=== PATIENT | male | born 1980 | race Caucasian/White ===

== ENCOUNTER 2016-02-12 00:47 | Emergency (ER) | payer MEDICARE, MEDICAID ==
[~2016-02-12] VITALS: Ht 177.8 cm; Wt 85.0 kg
[~2016-02-12 00:47] MED LIST: ALBUTEROL SULFAT3 M3 IH; BENTYL 10MG10 MG/CAP; BRINTELLIX5; CRESTOR20 MG PO; FORTAMET500 M1; IRON325 M2 PO; LAMICTAL 100MG100 MG PO; MELATONIN1 MG; MIRAPEX0.25 MG PO; NEURONTIN300 MG/CAP PO; PERCOCET 325 MG1 TA2 PO; PROAIR RES117 MCG/Ac IH; PROZAC 20MG20 MG PO; RT ADVAIR 228 DISKUS IH; SINEQUAN 1010 MG/CAP PO; SINGULAIR 110 MG/TAB PO; WELCHOL 625MG625 MG
[2016-02-12 01:22] LABS: BASO % 0.5 % (0.0-2.0); EOS # 0.3 (0.0-0.7); EOS % 3.2 % (0-4.0); GRAN # 4.2 (1.4-6.5); GRAN % 53.5 % (42.2-75.2); HEMATOCRIT 41.4 % (42.0-52.0); HEMOGLOBIN 14.9 g/dl (13.5-18.0); LYMPH # 2.8 (1.2-3.4); MEAN CELL VOLUME 92 fl (80.0-100.0); MEAN CORPUSCULAR HEMOGLOBIN 33 pg (27.0-31.0); MEAN CORPUSCULAR HGB CONC 36 g/dl (33.0-37.0); MEAN PLATELET VOLUME 10.1 fl (7.4-10.4); MONO # 0.6 (0.1-0.6); MONO % 7.5 % (1.7-9.3); PLATELET COUNT 224 K/mm3 (130-400); RED BLOOD COUNT 4.49 M/mm3 (4.20-5.60); WHITE BLOOD COUNT 7.9 K/mm3 (4.8-10.8)
[2016-02-12] MEDS ORDERED: LYRICA 50MG CAP50 MG PO (01:33)
[2016-02-12] MEDS ORDERED: ZYPREXA 5MG5 MG PO (01:34)
[2016-02-12] MEDS ORDERED: VIBERZI75 MG PO (01:35)
[2016-02-12 01:43] LABS: ADJUSTED CALCIUM 8.8 mg/dL (8.4-10.2); ALANINE AMINOTRANSFERASE 37 U/L (21-72); ALBUMIN 4.6 gm/dL (3.5-5.0); ALKALINE PHOSPHATASE 113 U/L (50-136); ANION GAP 12 mmol/L (7-16); BILIRUBIN,TOTAL 0.7 mg/dL (0.0-1.0); BLOOD UREA NITROGEN 14 mg/dL (9-20); CALCIUM 9.3 mg/dL (8.4-10.2); CARBON DIOXIDE 23 mmol/L (22-30); CHLORIDE 108 mmol/L (98-107); CREATININE, serum 0.81 mg/dL (0.66-1.25); GLUCOSE 97 mg/dL (74-106); LIPASE 230 U/L (23-300); POTASSIUM 4.4 mmol/L (3.4-5.0); SODIUM 143 mmol/L (137-145); TOTAL PROTEIN 7.9 gm/dL (6.4-8.2)
[2016-02-12 01:49] LABS: C-REACTIVE PROTEIN < 0.5 mg/dL (0.0-0.9)
[2016-02-12 01:55] LABS: PH 5 (5-8); SQUAMOUS EPITHELIAL None Seen /hpf; URINE APPEARANCE Clear; URINE BACTERIA None Seen /hpf; URINE BILIRUBIN Negative (NEGATIVE); URINE BLOOD Negative (NEGATIVE); URINE COLOR Yellow; URINE GLUCOSE Negative (NEGATIVE); URINE KETONE Negative (NEGATIVE); URINE RBC 0-2 /hpf; URINE UROBILINOGEN Negative (NEGATIVE); URINE WBC 0-2 /hpf
[2016-02-12 02:21] VITALS: BP 116/80; PULSE 90; TEMP 97
[2016-02-12] MEDS ORDERED: PROTONIX 40MG T40 MG PO (18:41)
== END 2016-02-12 02:27 | disposition home or self-care (01) ==
LOC: COL.ER 00:47
PROVIDERS: Physician Assistant
DX: R10.13 Epigastric pain (principal)
CPT/HCPCS: J1170; J2405; J7030

== ENCOUNTER 2016-02-12 17:05 | Emergency (ER) | payer MEDICARE, MEDICAID ==
[~2016-02-12] VITALS: Ht 177.8 cm; Wt 85.0 kg
[~2016-02-12 17:05] MED LIST changes: +LYRICA 50MG CAP50 MG PO; +VIBERZI75 MG PO; +ZYPREXA 5MG5 MG PO
[2016-02-12 17:11] VITALS: BP 134/98; TEMP 98.5
[2016-02-12 17:46] LABS: BASO % 0.5 % (0.0-2.0); EOS # 0.3 (0.0-0.7); EOS % 3.3 % (0-4.0); GRAN # 4.7 (1.4-6.5); GRAN % 62.4 % (42.2-75.2); HEMATOCRIT 40.9 % (42.0-52.0); HEMOGLOBIN 14.9 g/dl (13.5-18.0); LYMPH % 26.2 % (20.0-51.0); MEAN CELL VOLUME 92 fl (80.0-100.0); MEAN CORPUSCULAR HEMOGLOBIN 33 pg (27.0-31.0); MEAN CORPUSCULAR HGB CONC 36 g/dl (33.0-37.0); MEAN PLATELET VOLUME 9.9 fl (7.4-10.4); MONO # 0.5 (0.1-0.6); MONO % 7.1 % (1.7-9.3); PLATELET COUNT 214 K/mm3 (130-400); RED BLOOD COUNT 4.47 M/mm3 (4.20-5.60); REDCELL DISTRIBUTION WIDTH-CV 11.9 % (11.5-14.5); WHITE BLOOD COUNT 7.5 K/mm3 (4.8-10.8)
[2016-02-12 17:56] LABS: ADJUSTED CALCIUM 8.9 mg/dL (8.4-10.2); ALBUMIN 4.5 gm/dL (3.5-5.0); BILIRUBIN,TOTAL 0.8 mg/dL (0.0-1.0); CALCIUM 9.3 mg/dL (8.4-10.2); CREATININE, serum 0.74 mg/dL (0.66-1.25); POTASSIUM 4.2 mmol/L (3.4-5.0); TOTAL PROTEIN 7.7 gm/dL (6.4-8.2)
[2016-02-12 18:22] LABS: PH 6 (5-8); SQUAMOUS EPITHELIAL None Seen /hpf; URINE APPEARANCE Clear; URINE BACTERIA None Seen /hpf; URINE BILIRUBIN Negative (NEGATIVE); URINE BLOOD Negative (NEGATIVE); URINE COLOR Yellow; URINE GLUCOSE Negative (NEGATIVE); URINE KETONE Negative (NEGATIVE); URINE RBC 0-2 /hpf; URINE UROBILINOGEN Negative (NEGATIVE); URINE WBC None Seen /hpf
[2016-02-12] MEDS ORDERED: PROTONIX 40MG T40 MG PO (18:41)
[2016-02-12 19:01] VITALS: PULSE 100
== END 2016-02-12 19:01 | disposition home or self-care (01) ==
LOC: COL.ER 17:05
PROVIDERS: Emergency Medicine
DX: R10.84 Generalized abdominal pain (principal)
CPT/HCPCS: J1170; J2405; J7030; Q9967

== ENCOUNTER 2016-02-14 23:13 | Emergency (ER) | payer MEDICARE, MEDICAID ==
[~2016-02-14] VITALS: Ht 177.8 cm; Wt 85.0 kg
[~2016-02-14 23:13] MED LIST changes: +PROTONIX 40MG T40 MG PO
[2016-02-14 23:16] VITALS: TEMP 97.8
[2016-02-14 23:48] LABS: BASO % 0.5 % (0.0-2.0); EOS # 0.2 (0.0-0.7); EOS % 2.3 % (0-4.0); GRAN # 4.4 (1.4-6.5); GRAN % 55.8 % (42.2-75.2); HEMATOCRIT 43.4 % (42.0-52.0); HEMOGLOBIN 15.4 g/dl (13.5-18.0); LYMPH # 2.8 (1.2-3.4); LYMPH % 35.1 % (20.0-51.0); MEAN CELL VOLUME 93 fl (80.0-100.0); MEAN CORPUSCULAR HEMOGLOBIN 33 pg (27.0-31.0); MEAN CORPUSCULAR HGB CONC 36 g/dl (33.0-37.0); MEAN PLATELET VOLUME 10.2 fl (7.4-10.4); MONO # 0.5 (0.1-0.6); PLATELET COUNT 217 K/mm3 (130-400); RED BLOOD COUNT 4.67 M/mm3 (4.20-5.60)
[2016-02-15 00:01] LABS: ADJUSTED CALCIUM 9.1 mg/dL (8.4-10.2); ALANINE AMINOTRANSFERASE 58 U/L (21-72); ALBUMIN 4.7 gm/dL (3.5-5.0); ALKALINE PHOSPHATASE 102 U/L (50-136); ANION GAP 13 mmol/L (7-16); BILIRUBIN,TOTAL 0.9 mg/dL (0.0-1.0); BLOOD UREA NITROGEN 17 mg/dL (9-20); C-REACTIVE PROTEIN < 0.5 mg/dL (0.0-0.9); CALCIUM 9.7 mg/dL (8.4-10.2); CARBON DIOXIDE 23 mmol/L (22-30); CHLORIDE 102 mmol/L (98-107); CREATININE, serum 0.92 mg/dL (0.66-1.25); GLUCOSE 100 mg/dL (74-106); LIPASE 110 U/L (23-300); POTASSIUM 4.3 mmol/L (3.4-5.0); SODIUM 138 mmol/L (137-145); TOTAL PROTEIN 8.1 gm/dL (6.4-8.2)
[2016-02-15 00:10] LABS: ERYTHROCYTE SEDIMENTATION RATE 6 mm/hr (0-15)
[2016-02-15 00:22] LABS: PH 7 (5-8); SQUAMOUS EPITHELIAL None Seen /hpf; URINE APPEARANCE Clear; URINE BACTERIA None Seen /hpf; URINE BILIRUBIN Negative (NEGATIVE); URINE BLOOD Negative (NEGATIVE); URINE COLOR Yellow; URINE GLUCOSE Negative (NEGATIVE); URINE KETONE Negative (NEGATIVE); URINE RBC 0-2 /hpf; URINE UROBILINOGEN Negative (NEGATIVE); URINE WBC None Seen /hpf
[2016-02-15 01:05] VITALS: BP 105/65; PULSE 78
[2016-02-15] MEDS ORDERED: ULTRAM 50MG TAB50 MG PO (01:05)
[2016-02-15] MEDS ORDERED: ZOFRAN8 MG PO (01:05)
== END 2016-02-15 01:25 | disposition home or self-care (01) ==
LOC: COL.ER 23:13
PROVIDERS: Emergency Medicine
DX: R10.31 Right lower quadrant pain (principal); R10.32 Left lower quadrant pain
CPT/HCPCS: J1885; J2060

== ENCOUNTER 2016-08-19 17:27 | Emergency (ER) | payer MEDICARE, MEDICAID ==
[~2016-08-19] VITALS: Ht 177.8 cm; Wt 84.5 kg
[~2016-08-19 17:27] MED LIST changes: +ULTRAM 50MG TAB50 MG PO; +ZOFRAN8 MG PO
[2016-08-19 17:32] VITALS: TEMP 98.3
[2016-08-19 18:05] LABS: BASO % 0.3 % (0.0-2.0); EOS # 0.1 (0.0-0.7); EOS % 2.1 % (0-4.0); GRAN # 3.7 (1.4-6.5); GRAN % 54.2 % (42.2-75.2); HEMATOCRIT 42.3 % (42.0-52.0); HEMOGLOBIN 15.4 g/dl (13.5-18.0); LYMPH # 2.5 (1.2-3.4); LYMPH % 37.2 % (20.0-51.0); MEAN CELL VOLUME 90 fl (80.0-100.0); MEAN CORPUSCULAR HEMOGLOBIN 33 pg (27.0-31.0); MEAN CORPUSCULAR HGB CONC 36 g/dl (33.0-37.0); MEAN PLATELET VOLUME 9.8 fl (7.4-10.4); MONO # 0.4 (0.1-0.6); MONO % 5.9 % (1.7-9.3); PLATELET COUNT 213 K/mm3 (130-400); RED BLOOD COUNT 4.69 M/mm3 (4.20-5.60); REDCELL DISTRIBUTION WIDTH-CV 12.1 % (11.5-14.5); WHITE BLOOD COUNT 6.8 K/mm3 (4.8-10.8)
[2016-08-19 18:15] LABS: ADJUSTED CALCIUM 8.9 mg/dL (8.4-10.2); ALANINE AMINOTRANSFERASE 32 U/L (21-72); ALBUMIN 4.6 gm/dL (3.5-5.0); ALKALINE PHOSPHATASE 130 U/L (50-136); ANION GAP 12 mmol/L (7-16); BILIRUBIN,TOTAL 0.7 mg/dL (0.0-1.0); BLOOD UREA NITROGEN 17 mg/dL (9-20); CALCIUM 9.4 mg/dL (8.4-10.2); CARBON DIOXIDE 23 mmol/L (22-30); CHLORIDE 103 mmol/L (98-107); CREATININE, serum 0.77 mg/dL (0.66-1.25); GLUCOSE 94 mg/dL (74-106); LIPASE 116 U/L (23-300); SODIUM 138 mmol/L (137-145); TOTAL PROTEIN 7.8 gm/dL (6.4-8.2)
[2016-08-19 18:25] LABS: B-TYPE NATRIURETIC PEPTIDE < 11 pg/mL (0-125); TROPONIN-I < 0.012 ng/mL (0.000-0.034)
[2016-08-19] MEDS ORDERED: ZOFRAN 4MG T4 MG/TAB PO ×2 (20:25→20:34)
[2016-08-19] MEDS ORDERED: PERCOCET 325 MG1 TA2 PO (20:25)
[2016-08-19 20:57] VITALS: BP 121/81; PULSE 80
== END 2016-08-19 20:58 | disposition home or self-care (01) ==
LOC: COL.ER 17:27
PROVIDERS: Emergency Medicine
DX: R07.9 Chest pain, unspecified (principal); R91.1 Solitary pulmonary nodule; Z90.49 Acquired absence of other specified parts of digestive tract; Z98.890 Other specified postprocedural states
CPT/HCPCS: J2270; Q9967

== ENCOUNTER 2016-09-04 03:01 | Emergency (ER) | payer MEDICARE, MEDICAID ==
[~2016-09-04] VITALS: Ht 177.8 cm; Wt 85.9 kg
[~2016-09-04 03:01] MED LIST changes: +ZOFRAN 4MG T4 MG/TAB PO
[2016-09-04 03:03] VITALS: TEMP 98.9
[2016-09-04 03:39] LABS: BASO % 0.5 % (0.0-2.0); EOS # 0.2 (0.0-0.7); EOS % 2.4 % (0-4.0); GRAN # 3.9 (1.4-6.5); GRAN % 52.5 % (42.2-75.2); HEMATOCRIT 43.8 % (42.0-52.0); HEMOGLOBIN 15.9 g/dl (13.5-18.0); LYMPH # 2.8 (1.2-3.4); LYMPH % 37.4 % (20.0-51.0); MEAN CELL VOLUME 90 fl (80.0-100.0); MEAN CORPUSCULAR HEMOGLOBIN 33 pg (27.0-31.0); MEAN CORPUSCULAR HGB CONC 36 g/dl (33.0-37.0); MEAN PLATELET VOLUME 10.3 fl (7.4-10.4); MONO # 0.5 (0.1-0.6); MONO % 6.9 % (1.7-9.3); PLATELET COUNT 198 K/mm3 (130-400); RED BLOOD COUNT 4.87 M/mm3 (4.20-5.60); WHITE BLOOD COUNT 7.5 K/mm3 (4.8-10.8)
[2016-09-04] MEDS ORDERED: NEURONTIN300 MG/CAP PO (03:42)
[2016-09-04 03:49] LABS: ADJUSTED CALCIUM 8.8 mg/dL (8.4-10.2); ALBUMIN 4.7 gm/dL (3.5-5.0); BILIRUBIN,TOTAL 0.9 mg/dL (0.0-1.0); CALCIUM 9.4 mg/dL (8.4-10.2); CREATININE, serum 0.7 mg/dL (0.66-1.25); POTASSIUM 4.1 mmol/L (3.4-5.0); TOTAL PROTEIN 7.9 gm/dL (6.4-8.2)
[2016-09-04 04:12] LABS: PH 6 (5-8); SQUAMOUS EPITHELIAL 0-2 /hpf; URINE APPEARANCE Cloudy; URINE BACTERIA None Seen /hpf; URINE BILIRUBIN Negative (NEGATIVE); URINE BLOOD Negative (NEGATIVE); URINE COLOR Yellow; URINE GLUCOSE Negative (NEGATIVE); URINE KETONE Negative (NEGATIVE); URINE RBC 0-2 /hpf; URINE UROBILINOGEN Negative (NEGATIVE); URINE WBC None Seen /hpf
[2016-09-04] MEDS ORDERED: COLESTID 1GM1 G (04:19)
[2016-09-04] MEDS ORDERED: ZOFRAN ODT4 MG PO (05:54)
[2016-09-04 06:04] VITALS: BP 130/90; PULSE 86
== END 2016-09-04 06:06 | disposition home or self-care (01) ==
LOC: COL.ER 03:01
PROVIDERS: Emergency Medicine
DX: R10.32 Left lower quadrant pain (principal); R11.2 Nausea with vomiting, unspecified; K58.0 Irritable bowel syndrome with diarrhea; G89.29 Other chronic pain; K21.9 Gastro-esophageal reflux disease without esophagitis; Z87.11 Personal history of peptic ulcer disease
CPT/HCPCS: C9113; J1170; J2765; J3010; J7030; Q9967